=== PATIENT | female | born 1995 | race African-American/Black ===

== ENCOUNTER 2022-09-04 13:10 | Emergency (ER) | payer MEDICAID, SELFPAY ==
[2022-09-04] VITALS (19 sets, daily range): BP systolic 88–140; BP diastolic 56–86; PULSE 84–122; RESP 18–20; TEMP 36.2–36.6; O2SAT 91–99; BMI 32.1
--- NOTE | 2022-09-04 13:29 | ED.GENADULT ---
HPI - General Adult General Time Seen by Provider: 13:29 Date Seen: 09/04/22 Chief complaint: Shortness of Breath/Dyspnea Stated complaint: Asthma acting up Time Seen by Provider: 09/04/22 13:11 Source: patient Mode of arrival: ambulatory Limitations: no limitations History of Present Illness HPI narrative: Patient is a 27-year-old female who has a longstanding history of asthma. She reports that whenever the weather turns to warmer from the winter she has flares. She knows she is allergic to molds and other potential environmental allergens. She has had a slight cough but has not had fever chills. She went to urgent care today and received an injection of medication she thinks was maybe a steroid. The patient reports no improvement today and presents to ER. She reports that she has no chest pain no limb swelling. She is on albuterol fluconazole salmeterol inhaler and montelukast. The patient has had no productive cough she does have a dry asthma type cough however she has not had recent infection. Related Data Home Medications Medication Instructions Recorded Confirmed albuterol sulfate 2.5 mg/3 mL 2.5 mg inhalation Q4H PRN 09/04/22 09/04/22 (0.083 %) solution for nebulization albuterol sulfate 90 mcg/actuation 2 inh inhalation Q4H PRN 09/04/22 09/04/22 aerosol inhaler (Ventolin HFA) fluticasone 250 mcg-salmeterol 50 1 inh inhalation Q12H 09/04/22 09/04/22 mcg/dose blistr powdr for inhalation (Advair Diskus) montelukast 10 mg tablet 10 mg PO DAILY 09/04/22 09/04/22 Previous Rx's Medication Instructions Recorded prednisone 20 mg tablet 20 mg PO BID 3 days #6 tabs 09/04/22 Allergies Allergy/AdvReac Type Severity Reaction Status Date / Time No Known Drug Allergies Allergy Verified 09/04/22 13:21 Review of Systems Status of ROS: Reports: 6 or more systems reviewed and unremarkable except as noted in History and below PFSH PFS Social History Smoking Status: Former smoker What tobacco products do you use: cigarettes Do you use any of these nicotine containing products: None Second hand tobacco smoke exposure: No How often do you have a drink containing alcohol: 2-4 times a month How many standard drinks containing alcohol do you have on a typical day: 1 or 2 How often do you have six or more drinks on one occasion: Never AUDIT-C Alcohol total score: 2 Non-prescribed substance use: denies use Exam Narrative: Exam Narrative: Objective: Patient's vital signs look largely unremarkable she is afebrile, O2 sat is 96% on room air In general she is alert talks in even unlabored sentences She does have occasional cough noted HEENT is unremarkable neck is supple chest shows basilar wheezes that clear with deep breathing Heart rhythm regular without murmur Extremities good perfusion Const: Vital Signs, click to edit/add: Vital Signs - 24 hr 09/04/22 13:16 09/04/22 14:16 09/04/22 13:26 Temperature 97.1 F L 97.8 F Pulse Rate 122 H Pulse Rate [Pulse Oximeter] 105 H 101 H Respiratory Rate 20 18 Blood Pressure Blood Pressure [Ri ght Upper Arm] 117/86 112/68 Pulse Oximetry 96 95 95 Oxygen Delivery Me thod Room Air Room Air 09/04/22 13:30 09/04/22 14:00 09/04/22 14:04 Temperature Pulse Rate 122 H 111 H 107 H Pulse Rate [Pulse Oximeter] Respiratory Rate Blood Pressure 95/72 Blood Pressure [Ri ght Upper Arm] Pulse Oximetry 91 95 94 Oxygen Delivery Me thod 09/04/22 14:07 09/04/22 14:12 09/04/22 14:13 Temperature Pulse Rate 106 H 97 109 H Pulse Rate [Pulse Oximeter] Respiratory Rate Blood Pressure 93/56 L 95/57 L 112/68 Blood Pressure [Ri ght Upper Arm] Pulse Oximetry 99 98 97 Oxygen Delivery Me thod 09/04/22 14:17 09/04/22 14:22 09/04/22 14:24 Temperature Pulse Rate 99 116 H 115 H Pulse Rate [Pulse Oximeter] Respiratory Rate Blood Pressure 94/71 88/69 L 90/80 Blood Pressure [Ri ght Upper Arm] Pulse Oximetry 95 97 94 Oxygen Delivery Me thod Course Vital Signs Vital signs: Initial Vital Signs Temperature 97.1 F L 09/04/22 13:16 Temperature Source Temporal Artery Scan 09/04/22 13:16 Pulse Rate 105 H 09/04/22 13:16 Respiratory Rate 20 02/08/23 13:16 Blood Pressure 117/86 09/04/22 13:16 Blood Pressure Mean 96 09/04/22 13:16 Blood Pressure Position Sitting 09/04/22 13:16 Pulse Oximetry 96 09/04/22 13:16 Oxygen Delivery Method 09/04/22 13:16 Vital Signs Temperature 97.1 F L 09/04/22 13:16 Pulse Rate 105 H 09/04/22 13:16 Respiratory Rate 20 09/04/22 13:16 Blood Pressure 117/86 09/04/22 13:16 Pulse Oximetry 96 09/04/22 13:16 Oxygen Delivery Method 09/04/22 13:16 Temperature 97.8 F 09/04/22 14:16 Pulse Rate 115 H 09/04/22 14:24 Respiratory Rate 18 09/04/22 14:16 Blood Pressure 90/80 09/04/22 14:24 Pulse Oximetry 94 09/04/22 14:24 Oxygen Delivery Method 09/04/22 14:16 Medical Decision Making [facility] Narrative Medical decision making narrative: Patient is a 27-year-old female with longstanding asthma who is on treatment. Who has an asthmatic flare which she typically has from weather change. Will give her a prednisone 50 mg orally she reports that always worked for her in the past. Will give her a DuoNeb. Will check a COVID/influenza/RSV test. Likely might benefit from some oral steroid for the next couple of days. Careful monitoring, return if worsening or changes. She has had experience that typically she gets better with the oral prednisone. Addendum: The patient's O2 sat continues to be stable. She feels a little better after the DuoNeb, she would like to try 1 more neb I will give her albuterol neb. Will see how she does with that. Her nasal swab is not back yet. She lives in [place]. Feels she can get home adequately. She has confidence that the prednisone will help her given it has helped her many times in the past. Will call in some additional prednisone for her Lab Data Labs: Lab Results 09/04/22 Range/Units 13:35 SARS-CoV-2 (PCR) Negative SARS-CoV-2 (Negative) Influenza Type A (PCR) Negative PCR FLU A (Negative) Influenza Type B (PCR) Negative PCR FLU B (Negative) RSV (PCR) Negative PCR RSV (Negative) Discharge Plan Discharge Clinical Impression: Asthma with acute exacerbation Patient Disposition: Home, Self-Care Condition: Improved Instructions: Asthma (ED) Additional Instructions: Rest, fluids, continue home medications, would do prednisone 20 mg b.i.d. x3 days, return to primary care in 48 hours, certainly return to the ED if problems or concerns or worsening she was comfortable this plan. Activity Level: Light activity Discharge Diet: Regular Prescriptions: New prednisone 20 mg tablet 20 mg PO BID 3 Days Qty: 6 0RF No Action montelukast 10 mg tablet 10 mg PO DAILY Label Comments: TAKE ONE TABLET BY MOUTH AT BEDTIME fluticasone propion-salmeterol [Advair Diskus] 250-50 mcg/dose blister with device 1 inh INHALATION Q12H Label Comments: INHALE ONE PUFF BY MOUTH TWICE DAILY albuterol sulfate [Ventolin HFA] 90 mcg/actuation HFA aerosol inhaler 2 inh INHALATION Q4H PRN Label Comments: INHALE 2 PUFFS BY MOUTH EVERY 4 HOURS NEEDED albuterol sulfate 2.5 mg /3 mL (0.083 %) solution for nebulization 2.5 mg inhalation Q4H PRN Label Comments: inhale the contents of 1 vial via nebulizer every 4 hours as needed Follow Up/Referrals: Provider,Not a Local [Primary Care Provider] - Stand Alone Forms: [employer] / [employer] Info Instructions
[2022-09-04] MEDS: IPRAT-ALBUT 0.5-2.5 MG/3 ML NEB 1 NEB IH (13:36)
[2022-09-04] MEDS: predniSONE 10 MG TABLET 50 MG PO (13:36)
[2022-09-04] MEDS: ALBUTEROL SULFATE 2.5 MG/3 ML VIAL.NEB NEB (14:03)
[2022-09-04 14:24] LABS: PCR FLU A Negative PCR FLU A (Negative); PCR FLU B Negative PCR FLU B (Negative); PCR RSV Negative PCR RSV (Negative)
[2022-09-04 14:25] LABS: SARS PCR* Negative SARS-CoV-2 (Negative)
--- NOTE | 2022-09-04 14:26 | PC.NURSE ---
pt states still feeling short of breath with exertion, respirations at 16-20 while sitting up, inp/exp wheezing heard, room air sats 95%. Pt states she will get up and it will start all over again. Pt able to complete full sentences.
== END 2022-09-04 14:42 | disposition home or self-care (01) ==
PROVIDERS: Emergency Provider Family Medicine
DX: J45.901 Unspecified asthma with (acute) exacerbation (principal)
CPT/HCPCS: 87502; 87634; 87635; 94640; 99283; J7512

== ENCOUNTER 2022-09-04 16:21 | Outpatient (CLI) | payer MEDICAID, SELFPAY | END 2022-09-04 16:22 | disposition home or self-care (01) | LOC: AMB 09-05 09:27 | PROVIDERS: Visit Provider Family Medicine | DX: R06.09 Other forms of dyspnea (principal) | CPT/HCPCS: A0425; A0427 ==

== ENCOUNTER 2022-09-04 16:51 | Emergency (ER) | payer MEDICAID, SELFPAY ==
[2022-09-04] VITALS (109 sets, daily range): BP systolic 53–157; BP diastolic 31–113; PULSE 105–148; RESP 29; TEMP 36.2; O2SAT 88–100; BMI 32.1
[2022-09-04] MEDS: EPINEPHrine 0.3 MG PEN IM ×2 (16:53→19:32)
--- NOTE | 2022-09-04 16:55 | CRLHL7_ITS ---
For Patients: As a result of the Cures Act, medical imaging exams and procedure reports are released immediately into your electronic medical record. You may view this report before your referring provider. If you have questions, please contact your health care provider. INDICATION: DIFFICULTY BREATHING, ASTHMATIC EPISODE TECHNIQUE: Chest 1 view. COMPARISON: None. FINDINGS: Cardiovascular and mediastinum: Heart size and vasculature are normal in caliber and appearance. Mediastinum is within normal limits. Lungs and pleural space: Lungs are clear. No sign of infiltrate or mass. No sign of pleural effusion. No pneumothorax. Bones and soft tissues: No significant findings. IMPRESSION: Unremarkable chest. Dictated by: Cosme Kapoor MD @ 09/04/2022 17:20:33 (Electronically Signed)
[2022-09-04] MEDS: METHYLPREDNISOLONE SOD SUCC 62.5 MG/ML (125) 125 MG IVP (16:56)
[2022-09-04] MEDS: 0.9 % SODIUM CHLORIDE 1000 ml 1,000 ML 6000 ML IV ×2 (16:57→17:40)
[2022-09-04] MEDS: LORazepam 2 MG/ML inj 1 MG IVP (17:02)
--- NOTE | 2022-09-04 17:04 | ED.GENADULT ---
HPI - General Adult General Time Seen by Provider: 17:04 Date Seen: 09/04/22 Chief complaint: Shortness of Breath/Dyspnea Stated complaint: Asthma Time Seen by Provider: 09/04/22 16:55 Source: patient Mode of arrival: EMS Limitations: physical limitation History of Present Illness HPI narrative: Patient is a 27-year-old female who was in earlier for asthma. She had gotten an injection at the urgent care and then got prednisone orally here as well as DuoNeb and albuterol neb. She felt better her O2 sats were in the mid 90% range without on room air and she wished to try and go home. She got home to [facility] and subsequently woke up from a nap and felt more short of breath ambulance was called and they brought her here. She was on attempted BiPAP she got Ativan 0.3 mg of IM epi has a [address]. She has her color is much better than when she was picked up. She has got an additional Ativan 1 mg now by the ER staff she went to stay 1 she was placed on BiPAP with an elevated FiO2 of 70 it has been reduced to 60 as she has 100% O2 sat. She feels much better her color is improved per the paramedics. She has a history of asthma since she has been a small child, and gets worse when she has change in weather like today when it is a little warmer. She has multiple allergies to mold and other issues. She has responded well to prednisone. She has not been intubated in the past Related Data Home Medications Medication Instructions Recorded Confirmed albuterol sulfate 2.5 mg/3 mL 2.5 mg inhalation Q4H PRN 09/04/22 09/04/22 (0.083 %) solution for nebulization albuterol sulfate 90 mcg/actuation 2 inh inhalation Q4H PRN 09/04/22 09/04/22 aerosol inhaler (Ventolin HFA) fluticasone 250 mcg-salmeterol 50 1 inh inhalation Q12H 09/04/22 09/04/22 mcg/dose blistr powdr for inhalation (Advair Diskus) montelukast 10 mg tablet 10 mg PO DAILY 09/04/22 09/04/22 Previous Rx's Medication Instructions Recorded prednisone 20 mg tablet 20 mg PO BID 3 days #6 tabs 02/08/23 Allergies Allergy/AdvReac Type Severity Reaction Status Date / Time No Known Drug Allergies Allergy Verified 09/04/22 13:21 Review of Systems Status of ROS: Reports: 6 or more systems reviewed and unremarkable except as noted in History and below PFSH PFS Social History Smoking Status: Former smoker What tobacco products do you use: cigarettes Do you use any of these nicotine containing products: None Second hand tobacco smoke exposure: No How often do you have a drink containing alcohol: 2-4 times a month How many standard drinks containing alcohol do you have on a typical day: 1 or 2 How often do you have six or more drinks on one occasion: Never AUDIT-C Alcohol total score: 2 Non-prescribed substance use: denies use Exam Narrative: Exam Narrative: Objective patient is alert oriented little bit distressed, O2 sat is low 90s She is slightly pale mouth clear lungs she has got wheezing in upper lower lung rowe to auscultation Heart is rhythm regular Extremities good perfusion Const: Vital Signs, click to edit/add: Vital Signs - 24 hr 09/04/22 17:03 09/04/22 17:04 09/04/22 17:05 Temperature Pulse Rate 118 H 132 H 140 H Pulse Rate [Pulse Oximeter] Respiratory Rate Blood Pressure 149/94 H Blood Pressure [Le ft Upper Arm] Pulse Oximetry 88 100 100 Oxygen Delivery Me thod 09/04/22 17:09 09/04/22 17:12 09/04/22 17:13 Temperature Pulse Rate 138 H 135 H 129 H Pulse Rate [Pulse Oximeter] Respiratory Rate Blood Pressure 127/98 H 116/98 H Blood Pressure [Le ft Upper Arm] Pulse Oximetry 99 100 100 Oxygen Delivery Me thod 09/04/22 17:15 09/04/22 17:17 09/04/22 17:20 Temperature Pulse Rate 127 H 124 H 130 H Pulse Rate [Pulse Oximeter] Respiratory Rate Blood Pressure 125/85 Blood Pressure [Le ft Upper Arm] Pulse Oximetry 100 100 100 Oxygen Delivery Me thod 09/04/22 17:25 09/04/22 17:26 09/04/22 17:28 Temperature Pulse Rate 146 H 143 H 137 H Pulse Rate [Pulse Oximeter] Respiratory Rate Blood Pressure 125/55 L Blood Pressure [Le ft Upper Arm] Pulse Oximetry 100 100 100 Oxygen Delivery Me thod 09/04/22 17:30 09/04/22 17:31 09/04/22 17:35 Temperature Pulse Rate 131 H 128 H 129 H Pulse Rate [Pulse Oximeter] Respiratory Rate Blood Pressure 128/70 Blood Pressure [Le ft Upper Arm] Pulse Oximetry 100 100 100 Oxygen Delivery Me thod 09/04/22 17:37 09/04/22 17:38 09/04/22 17:40 Temperature Pulse Rate 127 H 126 H 119 H Pulse Rate [Pulse Oximeter] Respiratory Rate Blood Pressure 135/67 Blood Pressure [Le ft Upper Arm] Pulse Oximetry 100 100 100 Oxygen Delivery Me thod 09/04/22 17:42 09/04/22 17:45 09/04/22 17:46 Temperature Pulse Rate 119 H 121 H 122 H Pulse Rate [Pulse Oximeter] Respiratory Rate Blood Pressure 98/65 108/61 Blood Pressure [Le ft Upper Arm] Pulse Oximetry 100 100 100 Oxygen Delivery Me thod 09/04/22 17:50 09/04/22 17:52 09/04/22 17:55 Temperature Pulse Rate 120 H 120 H 128 H Pulse Rate [Pulse Oximeter] Respiratory Rate Blood Pressure 101/56 L Blood Pressure [Le ft Upper Arm] Pulse Oximetry 100 100 100 Oxygen Delivery Me thod 09/04/22 17:57 09/04/22 18:00 09/04/22 18:01 Temperature Pulse Rate 148 H 132 H 125 H Pulse Rate [Pulse Oximeter] Respiratory Rate Blood Pressure 84/43 L 94/61 Blood Pressure [Le ft Upper Arm] Pulse Oximetry 95 98 100 Oxygen Delivery Me thod 09/04/22 18:05 09/04/22 18:07 09/04/22 18:10 Temperature Pulse Rate 122 H 131 H 132 H Pulse Rate [Pulse Oximeter] Respiratory Rate Blood Pressure 117/52 L Blood Pressure [Le ft Upper Arm] Pulse Oximetry 100 99 98 Oxygen Delivery Me thod 09/04/22 18:12 09/04/22 16:52 09/04/22 17:00 Temperature 97.2 F L Pulse Rate 132 H Pulse Rate [Pulse Oximeter] 125 H Respiratory Rate 29 H Blood Pressure 108/57 L Blood Pressure [Le ft Upper Arm] 157/113 H Pulse Oximetry 99 100 100 Oxygen Delivery Me thod BiPAP 09/04/22 18:13 09/04/22 18:15 02/08/23 18:16 Temperature Pulse Rate 126 H 122 H 126 H Pulse Rate [Pulse Oximeter] Respiratory Rate Blood Pressure 76/56 L Blood Pressure [Le ft Upper Arm] Pulse Oximetry 100 100 100 Oxygen Delivery De thod 09/04/22 18:20 09/04/22 18:22 09/04/22 18:25 Temperature Pulse Rate 126 H 123 H 121 H Pulse Rate [Pulse Oximeter] Respiratory Rate Blood Pressure 120/62 Blood Pressure [Le ft Upper Arm] Pulse Oximetry 99 97 [facility] 18:30 09/04/22 18:35 09/04/22 18:40 Temperature Pulse Rate 124 H 122 H 121 H Pulse Rate [Pulse Oximeter] Respiratory Rate Blood Pressure 75/55 L Blood Pressure [Le ft Upper Arm] Pulse Oximetry 100 100 [facility] 09[facility]/22 18:41 09/04/22 18:44 09/04/22 18:45 Temperature Pulse Rate 116 H 122 H 121 H Pulse Rate [Pulse Oximeter] Respiratory Rate Blood Pressure 102/56 L Blood Pressure [Le ft Upper Arm] Pulse Oximetry 100 99 98 [facility] 09[facility]/22 18:47 09/04/22 18:50 09/04/22 18:55 Temperature Pulse Rate 117 H 120 H 120 H Pulse Rate [Pulse Oximeter] Respiratory Rate Blood Pressure 101/51 L Blood Pressure [Le ft Upper Arm] Pulse Oximetry 100 100 100 Oxygen Delivery De thod 09/04/22 18:59 09/04/22 19:00 09/04/22 19:04 Temperature Pulse Rate 118 H 117 H 117 H Pulse Rate [Pulse Oximeter] Respiratory Rate Blood Pressure Blood Pressure [Le ft Upper Arm] Pulse Oximetry 100 100 [facility]22 19:05 09/04/22 19:07 09/04/22 19:10 Temperature Pulse Rate 113 H 120 H 120 H Pulse Rate [Pulse Oximeter] Respiratory Rate Blood Pressure 111/47 L Blood Pressure [Le ft Upper Arm] Pulse Oximetry 100 100 [facility] 09[facility]/22 19:12 09/04/22 19:15 09/04/22 19:17 Temperature Pulse Rate 118 H 117 H 116 H Pulse Rate [Pulse Oximeter] Respiratory Rate Blood Pressure 85/62 L 87/61 L Blood Pressure [Le ft Upper Arm] Pulse Oximetry 100 100 100 Oxygen Delivery Me thod 09/04/22 19:20 09/04/22 19:22 09/04/22 19:25 Temperature Pulse Rate 121 H 116 H 113 H Pulse Rate [Pulse Oximeter] Respiratory Rate Blood Pressure 114/81 Blood Pressure [Le ft Upper Arm] Pulse Oximetry 100 100 100 Oxygen Delivery Me thod 09/04/22 19:27 09/04/22 19:30 09/04/22 19:32 Temperature Pulse Rate 121 H 108 H 111 H Pulse Rate [Pulse Oximeter] Respiratory Rate Blood Pressure 124/68 125/75 Blood Pressure [Le ft Upper Arm] Pulse Oximetry 100 100 99 Oxygen Delivery De thod 09/04/22 19:35 09/04/22 19:40 09/04/22 19:41 Temperature Pulse Rate 122 H 130 H 135 H Pulse Rate [Pulse Oximeter] Respiratory Rate Blood Pressure 123/58 L Blood Pressure [Le ft Upper Arm] Pulse Oximetry 97 94 94 Oxygen Delivery De thod 09/04/22 19:45 09/04/22 19:47 09/04/22 19:50 Temperature Pulse Rate 137 H 123 H 120 H Pulse Rate [Pulse Oximeter] Respiratory Rate Blood Pressure 96/62 Blood Pressure [Le ft Upper Arm] Pulse Oximetry 93 95 99 Oxygen Delivery De thod 09/04/22 19:51 09/04/22 19:55 09/04/22 19:56 Temperature Pulse Rate 115 H 113 H 115 H Pulse Rate [Pulse Oximeter] Respiratory Rate Blood Pressure 112/81 108/72 Blood Pressure [Le ft Upper Arm] Pulse Oximetry 99 99 100 Oxygen Delivery De thod 09/04/22 19:57 09/04/22 20:00 09/04/22 20:02 Temperature Pulse Rate 117 H 108 H 114 H Pulse Rate [Pulse Oximeter] Respiratory Rate Blood Pressure 108/52 L 139/80 Blood Pressure [Le ft Upper Arm] Pulse Oximetry 99 100 99 Oxygen Delivery De thod 09/04/22 20:05 09/04/22 20:07 09/04/22 20:10 Temperature Pulse Rate 119 H 105 H 112 H Pulse Rate [Pulse Oximeter] Respiratory Rate Blood Pressure 127/78 Blood Pressure [Le ft Upper Arm] Pulse Oximetry 99 100 100 Oxygen Delivery De thod 09/04/22 20:11 02/08/23 20:15 09/04/22 20:18 Temperature Pulse Rate 115 H 131 H 124 H Pulse Rate [Pulse Oximeter] Respiratory Rate Blood Pressure 99/63 53/31 L Blood Pressure [Le ft Upper Arm] Pulse Oximetry 100 94 96 Oxygen Delivery Me thod 09/04/22 20:20 09/04/22 20:21 09/04/22 20:25 Temperature Pulse Rate 127 H 123 H 119 H Pulse Rate [Pulse Oximeter] Respiratory Rate Blood Pressure 128/104 H Blood Pressure [Le ft Upper Arm] Pulse Oximetry 95 97 99 Oxygen Delivery Me thod 09/04/22 20:28 09/04/22 20:30 Temperature Pulse Rate 126 H 122 H Pulse Rate [Pulse Oximeter] Respiratory Rate Blood Pressure Blood Pressure [Le ft Upper Arm] Pulse Oximetry 99 98 Oxygen Delivery Me thod Course Vital Signs Vital signs: Initial Vital Signs Temperature 97.2 F L 09/04/22 16:52 Temperature Source Temporal Artery Scan 09/04/22 16:52 Pulse Rate 125 H 09/04/22 16:52 Respiratory Rate 29 H 09/04/22 16:52 Blood Pressure 157/113 H 09/04/22 16:52 Blood Pressure Mean 127 09/04/22 16:52 Blood Pressure Position Sitting 09/04/22 16:52 Pulse Oximetry 100 09/04/22 16:52 Oxygen Delivery Method 09/04/22 16:52 Vital Signs Temperature 97.2 F L 09/04/22 16:52 Pulse Rate 125 H 09/04/22 16:52 Respiratory Rate 29 H 09/04/22 16:52 Blood Pressure 157/113 H 09/04/22 16:52 Pulse Oximetry 100 09/04/22 16:52 Oxygen Delivery Method 09/04/22 16:52 Temperature 97.2 F L 09/04/22 16:52 Pulse Rate 122 H 09/04/22 20:30 Respiratory Rate 29 H 09/04/22 16:52 Blood Pressure 128/104 H 09/04/22 20:20 Pulse Oximetry 98 09/04/22 20:30 Oxygen Delivery Method 09/04/22 16:52 Medical Decision Making MDM Narrative Medical decision making narrative: Patient is a 27-year-old female with a history of asthma. She has tested negative for all the viral swab studies, she got IV steroids now and Ativan as well as 0.3 epi x2 1 in the ambulance and 1 here in the ER. The patient will get a chest x-ray lab studies a L of IV fluid. She is on BiPAP now RT is been consulted they are giving a settings. Her O2 sat is 100%. She is feeling much better. Her color is much better per the paramedics. I suspect we can watch her in the ED for a period of time and see how she does before consideration transfer other plan. If she continues to improve we can stop and wean off the BiPAP and I will ask Dr. Spann to consult if we consider keeping her here. Addendum: The patient went from a trial of BiPAP where she was by our RTs assessment starting auto PEEP. We took that off and gave her non-rebreather mask which she seems to be doing much better on. Her heart rate has come down her O2 sat remains 100% she is talking in more full sentences she is much calmer her color looks good. Her pH shows a slightly acidotic venous gases 7.2 not marked CO2 retention. Patient's chest x-ray looks largely unremarkable. EKG shows sinus tachycardia rate [address] changes mostly artifact. The patient was given IV 2 g of magnesium, subcu terbutaline 0.25 mg 1 L of IV saline. And she is improving nicely, talking more full sentences as mention. Her white count is elevated 18,000 her chest x-ray looks unremarkable, the patient did get a shot of probable steroid this morning. Her viral studies were negative earlier today. If she continues to improve I think she can stay in the hospital for continued observation oxygen. Will observe her in the ED for lengthy period of time. Addendum: The patient was doing better for a period time but now is got a little bit lower blood pressure in the 100 range systolic, she feels a little bit wheezy again. She is given another albuterol neb. I am going to start at this point calling around for various hospital systems as bed placement been very difficult to see if anyone can take her for observation in the ICU. I feel that at some point she certainly given this has not turned around could have trouble and may need intubation and mechanical ventilation or BiPAP for period of time. The patient has started to have some wheezing again. I discussed with Dr. Darwin Diane at [facility] senior software analyst who recommended repeating the venous blood gas. If she remains acidotic they would accept her in transfer. The patient has had some additional wheezing but we will see if her blood gas changes and then disposition pending. We should know this within short order and then she would be on a wait list for [facility]. Addendum: 7:19 p.m. the patient I discussed with the senior software analyst at [place] he has accepted, but they have a 3-[address] Granados in [facility] has accepted as senior software analyst. At this point given we do not have ventilatory capacity I do not think intubation be appropriate, her pH was about the same. Will continue to provide treatment for her asthma. Hopefully or steroids will kick in shortly. Will transfer by ground ambulance when available. Of note is we tried to contact all other [facility] is a known was accepting this was the soonest we could get a hospital bed. Family was informed. This is a critical situation and I think there is really no good choices here other than supportive care and transfer to more intensive care when available. This constitutes a great risk and it certainly not my preference is a physician I would rather her transfer promptly but will have to make arrangements as available. Patient is complaining of a draining cyst in her vaginal area, with nurses present inspection showed a small cyst but it did not appear to be draining. She does have a moderately elevated elevated white count common will give her Rocephin and Zithromax IV. Await [facility] acceptance for transfer. Patient is hemodynamically stable at this point she was acidotic on 2 venous blood gases however but she does seem to be stable at this point. I anticipate summer steroid medicines kicking at this time Lab Data Labs: Lab Results 09/04/22 09/04/22 09/04/22 Range/Units 17:02 17:02 17:02 WBC 18.57 H (4.50-11.00) K/uL RBC 5.11 (4.00-5.20) m/uL Hgb 14.7 (12.0-16.0) gm/dL Hct 43.8 (33.0-51.0) % MCV 86 (80-100) fL MCH 29 (26-34) pg MCHC 34 (32-36) gm/dL RDW Coeff of Ramesh 12.9 (11.5-15.5) % Plt Count 364 (140-440) K/uL Neut % (Auto) 95.6 H (42.0-72.0) % Lymph % (Auto) 2.8 L (20-44) % [place] % (Auto) 0.4 (0.0-11.0) % Eos % (Auto) 0.0 (0.0-7.0) % Baso % (Auto) 0.0 (0.0-3.0) % Neut # (Auto) 17.80 H (1.7-7.0) K/uL Lymph # (Auto) 0.50 L (0.90-2.90) K/uL [place] # (Auto) 0.10 (0.00-0.90) K/UL Eos # (Auto) 0.00 (0.00-0.50) K/uL Baso # (Auto) 0.00 (0.00-0.30) K/uL VBG pH (7.32-7.43) VBG pCO2 (40-50) mmHG VBG pO2 (25-47) mmHG VBG HCO3 (21-28) mmol/L Sodium 144 (135-149) mmol/L Potassium 3.6 (3.6-5.1) mmol/L Chloride 109 (96-114) mmol/L Carbon Dioxide 23 (20-32) mmol/L BUN 11 (5-24) mg/dL Creatinine 0.5 (0.5-1.5) mg/dL Estimated GFR 133 ml/min Glucose 173 H (60-115) mg/dL Calcium 9.2 (8.4-10.6) mg/dL C-Reactive Protein 0.7 (0.5-1.0) mg/dL HCG, Qual Negative (Negative) 09/04/22 09/04/22 09/04/22 Range/Units 17:20 18:30 19:23 WBC (4.50-11.00) K/uL RBC (4.00-5.20) m/uL Hgb (12.0-16.0) gm/dL Hct (33.0-51.0) % MCV (80-100) fL MCH (26-34) pg MCHC (32-36) gm/dL RDW Coeff of Ramesh (11.5-15.5) % Plt Count (140-440) K/uL Neut % (Auto) (42.0-72.0) % Lymph % (Auto) (20-44) % [place] % (Auto) (0.0-11.0) % Eos % (Auto) (0.0-7.0) % Baso % (Auto) (0.0-3.0) % Neut # (Auto) (1.7-7.0) K/uL Lymph # (Auto) (0.90-2.90) K/uL [place] # (Auto) (0.00-0.90) K/UL Eos # (Auto) (0.00-0.50) K/uL Baso # (Auto) (0.00-0.30) K/uL VBG pH 7.231 L* 7.212 L* (7.32-7.43) VBG pCO2 58 H 35 L (40-50) mmHG VBG pO2 45.6 76.7 H (25-47) mmHG VBG HCO3 24 14 L (21-28) mmol/L Sodium (135-149) mmol/L Potassium 4.1 (3.6-5.1) mmol/L Chloride (96-114) mmol/L Carbon Dioxide (20-32) mmol/L BUN (5-24) mg/dL Creatinine (0.5-1.5) mg/dL Estimated GFR ml/min Glucose (60-115) mg/dL Calcium (8.4-10.6) mg/dL C-Reactive Protein (0.5-1.0) mg/dL HCG, Qual (Negative) Discharge Plan Discharge Clinical Impression: Asthma with acute exacerbation, Asthma Patient Disposition: Xfer [facility] Discharge Location: [facility] Condition: Unchanged Additional Instructions: Transfer to in intensive care unit at [facility] Prescriptions: No Action montelukast 10 mg tablet 10 mg PO DAILY Label Comments: TAKE ONE TABLET BY MOUTH AT BEDTIME fluticasone propion-salmeterol [Advair Diskus] 250-50 mcg/dose blister with device 1 inh INHALATION Q12H Label Comments: INHALE ONE PUFF BY MOUTH TWICE DAILY albuterol sulfate [Ventolin HFA] 90 mcg/actuation HFA aerosol inhaler 2 inh INHALATION Q4H PRN Label Comments: INHALE 2 PUFFS BY MOUTH EVERY 4 HOURS NEEDED albuterol sulfate 2.5 mg /3 mL (0.083 %) solution for nebulization 2.5 mg inhalation Q4H PRN Label Comments: inhale the contents of 1 vial via nebulizer every 4 hours as needed prednisone 20 mg tablet 20 mg PO BID 3 Days Qty: 6 0RF Stand Alone Forms: [employer] Info Instructions
[2022-09-04] MEDS: ALBUTEROL INHALER 2 PUFF IH ×2 (17:08→20:20)
[2022-09-04 17:17] LABS: Hematocrit 43.8 % (33.0-51.0); Hemoglobin* 14.7 gm/dL (12.0-16.0); Immature Granulocytes Pct Auto 1.2 %; Lymphocytes Percent Auto 2.8 % (20-44); Mean Corpuscular HGB Conc 34 gm/dL (32-36); Mean Corpuscular Hemoglobin 29 pg (26-34); Mean Corpuscular Volume 86 fL (80-100); Monocytes Percent Auto 0.4 % (0.0-11.0); Neutrophils Percent Auto 95.6 % (42.0-72.0); Platelet Count* 364 K/uL (140-440); RDW Coefficient of Variation % 12.9 % (11.5-15.5); Red Blood Count 5.11 m/uL (4.00-5.20); White Blood Count* 18.57 K/uL (4.50-11.00)
[2022-09-04 17:22] LABS: Slide Review Reflex No
[2022-09-04 17:26] LABS: HCO3 VBG 24 mmol/L (21-28); PCO2 VBG 58 mmHG (40-50); PO2 VBG 45.6 mmHG (25-47)
[2022-09-04] MEDS: MAGNESIUM SULFATE 2 GM/50 ML PIGGYBACK IVPB (17:26)
[2022-09-04 17:29] LABS: pH VBG 7.231 (7.32-7.43)
[2022-09-04] MEDS: TERBUTALINE 1 MG/ML INJ 0.25 MG SUBCUT (17:35)
[2022-09-04 17:39] LABS: Chloride* 109 mmol/L (96-114); HCG Qualitative Serum* Negative (Negative); Potassium* 3.6 mmol/L (3.6-5.1); Sodium* 144 mmol/L (135-149)
[2022-09-04 17:42] LABS: Blood Urea Nitrogen* 11 mg/dL (5-24); Carbon Dioxide* 23 mmol/L (20-32); Creatinine* 0.5 mg/dL (0.5-1.5); Estimated Glomerular Filt Rate 133 ml/min
[2022-09-04 17:43] LABS: Calcium* 9.2 mg/dL (8.4-10.6); Glucose* 173 mg/dL (60-115)
[2022-09-04 17:45] LABS: C Reactive Protein* 0.7 mg/dL (0.5-1.0)
[2022-09-04] MEDS: ONDANSETRON 2 MG/ML inj 4 MG IVP (18:00)
[2022-09-04] MEDS: ALBUTEROL SULFATE 2.5 MG/3 ML VIAL.NEB NEB ×2 (18:05→19:32)
--- NOTE | 2022-09-04 18:05 | ED.NURSE ---
Pt vomited after having sip of water. zofran given. Also having an increase in wheezing, Alb neb given
[2022-09-04 18:42] LABS: HCO3 VBG 14 mmol/L (21-28); PCO2 VBG 35 mmHG (40-50); PO2 VBG 76.7 mmHG (25-47)
[2022-09-04 18:53] LABS: pH VBG 7.212 (7.32-7.43)
--- NOTE | 2022-09-04 19:32 | ED.NURSE ---
Pt felt like she is wheezing more. Dr Flannery updated. Epipen and neb given
[2022-09-04 20:06] LABS: Potassium* 4.1 mmol/L (3.6-5.1)
--- NOTE | 2022-09-04 20:30 | PC.NURSE ---
pts mother Aram, going home to take care of pts [age] year old Marcelino. Her phone number is # .
--- NOTE | 2022-09-04 20:34 | ED.NURSE ---
Report to JACEY Tapia at [facility]
[2022-09-04] MEDS: 0.9 % SODIUM CHLORIDE 1000 ml 1,000 ML 75 ML IV (20:56)
[2022-09-04] MEDS: cefTRIAXone 1 GM in 0.9 % SODIUM CHLORIDE Mini-bag 100 ML IVPB (20:58)
[2022-09-04] MEDS: AZITHROMYCIN 100 MG/ML inj 500 MG IVPB (21:04)
[2022-09-04 21:19] LABS: Bacteria Urine Few; Squamous Epithelial Cell Urine Few (None-Few)
--- NOTE | 2022-09-04 21:31 | PC.NURSE ---
pt continues to have increase dyspnea using accessory muscles. Talking with short quick sentences. Duoneb started. noted audible wheezing. tachy 124 and sat 92%. Per MD Dr Huddleston [t may now be transferred emergently.
--- NOTE | 2022-09-04 21:54 | PC.NURSE ---
report given to transfering acls crew, report had been called to [facility].
--- NOTE | 2022-09-04 21:57 | PC.NURSE ---
updated report and patient status called to [place] receiving RNRegina. Pt has maintenance fluids infusing along with zithromax and rocephin piggyback. Radiology called and will be forwarding images to [place]. VSS, pt tolerating duoneb started. RR 24-28, oxygen sats 92-93%.
== END 2022-09-04 21:40 | disposition short-term general hospital (02) ==
PROVIDERS: Emergency Provider Family Medicine
DX: J45.901 Unspecified asthma with (acute) exacerbation (principal)
CPT/HCPCS: 36415; 71045; 80048; 81015; 82803; 84132; 84703; 85025; 86140; 87086; 93005; 94640; 94761; 96361; 96372; 96374; 96375; 99285; 99291; A9270; J0171; J0456; J0696; J2060; J2405; J2930; J3105; J3475; J7030

== ENCOUNTER 2022-09-04 21:33 | Outpatient (CLI) | payer MEDICAID, SELFPAY | END 2022-09-04 21:34 | disposition home or self-care (01) | LOC: AMB 09-17 12:25 | PROVIDERS: PCP Emergency Medicine; Visit Provider Family Medicine | DX: J45.909 Unspecified asthma, uncomplicated (principal); J96.90 Respiratory failure, unspecified, unspecified whether with hypoxia or hypercapnia | CPT/HCPCS: A0425; A0427 ==

== ENCOUNTER 2023-12-17 22:22 | Outpatient (REF) | payer MEDICAID, SELFPAY ==
--- OUTSIDE RECORDS SUMMARY | 2023-12-17 22:25 | XMS_ITS | Referral Summary ---
Author Organization [place] Address [facility] [place] [address] Care Team Providers Care Cash Posting Clerk Name Role Phone No Ref-Primary, Physician Primary Care Provider Allergies Active Allergy Reactions Criticality Noted Date Comments Cats Difficulty breathing Medium 05/12/2006 Dogs Difficulty breathing Low 05/12/2006 Medications Medication Sig Dispensed Refills Start Date End Date Status Vitamin D, Cholecalciferol, 400 UNITS CHEW Take 2 chew tab by mouth Active montelukast (SINGULAIR) 10 MG tabletIndications:M oderate persistent asthma with exacerbation Take 1 tablet (10 mg) by mouth At Bedtime 30 tablet 11/16/2018 Active fluticasone (FLOVENT HFA) 110 MCG/ACT inhalerIndications: Moderate persistent asthma with exacerbation Inhale 2 puffs into the lungs 2 times daily 12 g 11/16/2018 Active vitamin B6 (PYRIDOXINE) 50 MG TABS Take 100 mg by mouth daily Active Vit-Fe Fumarate-FA ( FA PO) Active predniSONE (DELTASONE) 20 MG tablet Take two tablets (= 40mg) each day for 5 (five) days 10 tablet 08/12/2023 Active albuterol (PROVENTIL) (2.5 MG/3ML) 0.083% neb solution Take 1 vial (2.5 mg) by nebulization every 6 hours as needed for shortness of breath, wheezing or cough 90 mL 08/12/2023 Active albuterol (PROAIR HFA) 108 (90 Base) MCG/ACT inhaler Inhale 2 puffs into the lungs every 4 hours as needed for shortness of breath, wheezing or cough 18 g 08/12/2023 Active Active Problems Problem Noted Date Diagnosed Date Indication for care in labor or delivery 021 Asthma exacerbation 08/31/2017 Acute hypoxemic respiratory failure 02/22/2016 Broken tooth 12/26/2014 Suicidal ideation 12/24/2014 Mild major depression 05/02/2013 Moderate persistent asthma 04/12/2013 Obesity 04/23/2006 Overview: Problem list name updated by automated process. Provider to review Insulin resistance 04/21/2005 Acquired acanthosis nigricans 04/07/2005 Resolved Problems Problem Noted Date Diagnosed Date Resolved Date Moderate persistent asthma with exacerbation 3 05/02/2013 Intermittent asthma 02/22/2011 04/12/20 13 H/O Mild Persistent Asthma 04/05/2009 0 04/12/2013 Allergic state 04/21/2005 10/02/2005 Overview: Problem list name updated by automated process. Provider to review Moderate persistent asthma 10/11/2004 0 04/05/2009 ACUTE PYELONEPHRITIS 07/22/2003 013 Mild persistent asthma 12/19/200210/11 Anemia 12/19/2002 04/23/2006 Overview: Problem list name updated by automated process. Provider to review Immunizations Name Administration Dates Next Due DTAP (<7y) 04/13/2001, 8,1997,06/08 HEPA 04/19/2013,09/13/2011 HIB (PRP-T) 07/03/1998, 8,1997,06/08 HPV 10/30/2009,06/09/2009,03/20/2009 HepB 1997,1997,1997 Influenza (IIV3) PF 04/19/2013 Influenza Vaccine >6 months,quad, PF 05/16/2021, 09/01/2017 Influenza Vaccine, 6+MO IM (QUADRIVALENT W/PRESERVATIVES) 06/07/2016 MMR 04/13/2001,07/03/1998 Meningococcal ACWY (Menactra??) 03/20/2009 OPV, trivalent, live 04/11/1998 Poliovirus, inactivated (IPV) 04/13/2001, 998,1997 TDAP (Adacel,Boostrix) 05/16/2021,02/23/2018 TDAP Vaccine (Boostrix) 03/18/2008 TRIHIBIT (DTAP/HIB, <7y) 07/03/1998 Varicella 03/18/2008,03/23/2007 Social History Tobacco Use Types Packs/Day Years Used Date Smoking Tobacco: Every Day Cigarettes Smokeless Tobacco: Never Comments:parents smoke outsi de Alcohol Use Standard Drinks/Week Comments Yes 0 (1 standard drink = 0.6 oz pur e alcohol) PHQ-2 Answer Date Recorded PHQ-2 Score 0 08/04/2018 [place] Depression Scale Answer Date Recorded [place] Depression Score 3 07/02/2021 Last EPDS Self Harm Result Not on file 07/02 Adolescent Education Answer Date Record ed Getting School Help Needed Not on file 05/11 Sex and Gender Information Value Date Recorded Sex Assigned at Not on file Gender Identity Not on file Sexual Orientation Not on file Last Filed Vital Signs Vital Sign Reading Time Taken Comments Blood Pressure 137/119 08/12/2023 1:00 PM CAR ATTENDANT Pulse 76 08/12/2023 1:00 PM CAR ATTENDANT Temperature 36.1 ??C (97 ??F) 08/12/2023 12:04 PM CAR ATTENDANT Respiratory Rate 17 08/12/2023 1:35 PM CAR ATTENDANT Oxygen Saturation 97% 08/12/2023 1:35 PM CAR ATTENDANT Inhaled Oxygen Concentration - - Weight 85.3 kg (188 lb) 02/18/2021 6:33 PM CDT Height 156.2 cm (5' 1.5) 02/18/2021 6:33 PM CDT Body Mass Index 34.95 02/18/2021 6:33 PM CDT Plan of Treatment Not on file Procedures Procedure Name Priority Date/Time Associated Diagnosis Comments HIV 1&2 ANTIBODY (EXTERNAL RESULT) Routine 12/11/2020 12:00 PM CDT NEISSERIA GONORRHOEAE PCR Routine 06/29/2018 8:40 PM CAR ATTENDANT Screen for STD (sexually transmitted disease) ASTHMA ACTION PLAN Routine 12/15/2017 2: 11 PM CDT from Last 3 Months or Most Recently Relevant to Health Maintenance Results * HIV-1 Antibody (External Result) (12/11/2020 12:00 PM CDT) HIV 1&2 Antibody (External) Negative Nonreactive EXTERNAL LAB 12/11/2020 12:0 0 PM CDT Patient Reported LAB - HIM EXTERNAL R ESULT EXTERNAL LAB External Lab * NEISSERIA GONORRHOEA PCR (06/29/2018 8:40 PM CAR ATTENDANT) Specimen Descrip Vagina 06/29/20 8:49 PM CAR ATTENDANT [facility] N Gonorrhea PCR Negative NEG^Negat mohinder 07/01/2018 3:15 PM CAR ATTENDANT [facility] Comment: Negative for N. gonorrhoeae rRNA by hoist operator mediated amplification. A negative result by hoist operator mediated amplification does not preclude the presence of N. gonorrhoeae infection because results are dependent on proper and adequate collection, absence of inhibitors, and sufficient rRNA to be detected. Specimen from vagina (specimen) 06/29/2018 8:40 PM CAR ATTENDANT 06/29/2018 8:49 PM CAR ATTENDANT Clarice Wong MD LAB - MICRO GEN ERAL ORDERABLES Performing Organization Address [facility] Co de Phone Number [facility] [address], [place] [id number] [place] [address] [place] [address] [place] [address] from Last 3 Months or Most Recently Relevant to Health Maintenance Advance Directives For more information, please contact: [phone] * Full Code (Latest Code Status on File) Date Activated Date Inactivated Comments 07/02/2021 10:50 AM 07/03/2021 1:21 PM All basic a nd advanced life-sustaining interventions are performed as appropriate Question Answer Comments Code status determined by: Discussion with patie nt/ legal decision maker * Full Code Date Activated Date Inactivated Comments 06/30/2021 1:42 AM 07/01/2021 11:56 AM All basic a nd advanced life-sustaining interventions are performed as appropriate Question Answer Comments Code status determined by: Discussion with patie nt/ legal decision maker * Full Code Date Activated Date Inactivated Comments 09/01/2017 8:21 AM 10/12/2019 9:18 AM * Full Code Date Activated Date Inactivated Comments 08/31/2017 3:46 AM 09/01/2017 8:21 AM * Full Code Date Activated Date Inactivated Comments 02/24/2016 1:47 AM 08/31/2017 3:46 AM Care Teams Cash Posting Clerk Relationship Specialty Start Date End Date No Ref-Primary, Physician PCP - General 02/18/21
--- OUTSIDE RECORDS SUMMARY | 2023-12-17 22:25 | XMS_ITS | Clinical Summary ---
Author Organization [place] Address [facility] [place] [address] Care Team Providers Care Optometric Assistant Name Role Phone No Ref-Primary, Physician Primary [...] 03/18/2008 TRIHIBIT (DTAP/HIB, <7y) 07/03/1998 Varicella 03/18/2008,03/23/2007 Family History Medical History Relation Comments Blood Disease Father Heart Disease Father murmur Psychotic Disorder Father Bipolar Diabetes Maternal Aunt Depression Maternal Grandmother and anxiety Thyroid Disease Maternal Grandmother C.A.D. Maternal Uncle Depression Mother and anxiety Genitourinary Problems Mother kidney Psychotic Disorder Paternal Grandmother bipolar Relation Status Comments Father Maternal Aunt Maternal Grandmother Maternal Uncle Mother Paternal Grandmother Social History Tobacco Use Types Packs/Day Years Used Date Smoking Tobacco: Every Day Cigarettes Smokeless Tobacco: Never Comments:parents smoke outsi de Alcohol Use Standard Drinks/Week Comments Yes 0 (1 standard drink = 0.6 oz pur e alcohol) PHQ-2 Answer Date Recorded PHQ-2 Score 0 08/04/2018 [place] Depression Scale Answer Date Recorded [place] Depression Score 3 07/02/2021 Last EPDS Self [...] Comments Blood Pressure 137/119 08/12/2023 1:00 PM SENIOR SOFTWARE ENGINEERING MANAGER Pulse 76 08/12/2023 1:00 PM SENIOR SOFTWARE ENGINEERING MANAGER Temperature 36.1 ??C (97 ??F) 08/12/2023 12:04 PM SENIOR SOFTWARE ENGINEERING MANAGER Respiratory Rate 17 08/12/2023 1:35 PM SENIOR SOFTWARE ENGINEERING MANAGER Oxygen Saturation 97% 08/12/2023 1:35 PM SENIOR SOFTWARE ENGINEERING MANAGER Inhaled Oxygen Concentration - - Weight 85.3 kg (188 lb) 02/18/2021 6:33 PM CDT Height 156.2 cm (5' 1.5) 02/18/2021 6:33 PM CDT Body Mass Index 34.95 02/18/2021 6:33 PM CDT Plan of Treatment Health Maintenance Due Date Last Done Comments ADVANCE CARE PLANNING 1997 ANNUAL REVIEW OF HM ORDERS 1997 DEPRESSION ACTION PLAN 1997 Pneumococcal Vaccine: Pediatrics (0 to 5 Years) and At-Risk Patients (6 to 64 Years) (1 of 2 - PCV) 2003 HEPATITIS C SCREENING 2015 PHQ-9 12/08/2016 06/10/2016, 01/0 07/2013, 05/02/2013 YEARLY PREVENTIVE VISIT 06/10/2017 06/10/20 16, 09/13/2011, 03/19/2010, Additional history exists ASTHMA CONTROL TEST 06/14/2018 12/12/2017, 06/10/2016, 06/29/2015 ASTHMA ACTION PLAN 12/15/2018 12/15/2017, 0 02/09/2013, 09/22/2012, Additional history exists COVID-19 Vaccine ( season) 2023 04/03/2021, 03/13/2021 PAP 12/12/2023 12/11/2020 INFLUENZA VACCINE (Season Ended) 2024 05/16/2021, 09/01/2017, 06/07/2016, Additional history exists DTAP/TDAP/TD IMMUNIZATION (9 - Td or Tdap) 05/16/2031 05/16/2021, 02/23/2018, 03/18/2008, Additional history exists HEPATITIS B IMMUNIZATION Completed 998, 1997, 1997 IPV IMMUNIZATION Completed 04/13/2001, , 1997, Additional history exists MENINGITIS IMMUNIZATION Aged Out 03/20/2009 No l onger eligible based on patient's age to complete this topic HPV IMMUNIZATION Completed 10/30/2009, , 03/20/2009 CHLAMYDIA SCREENING Discontinued 12/11/2020, 06/29/2018, 06/29/2018 HIV SCREENING Completed 12/11/2020, 09/25/2017 RSV MONOCLONAL ANTIBODY Aged Out No l onger eligible based on patient's age to complete this topic Procedures Procedure Name Priority Date/Time Associated Diagnosis Comments HIV 1&2 ANTIBODY (EXTERNAL RESULT) Routine 12/11/2020 12:00 PM CDT NEISSERIA GONORRHOEAE PCR Routine 06/29/2018 8:40 PM SENIOR SOFTWARE ENGINEERING MANAGER Screen for STD (sexually transmitted disease) ASTHMA ACTION PLAN Routine 12/15/2017 2: 11 PM CDT from Last 3 Months or Most Recently Relevant to Health Maintenance Results * HIV-1 Antibody (External Result) (12/11/2020 12:00 PM CDT) HIV 1&2 Antibody (External) Negative Nonreactive EXTERNAL LAB 12/11/2020 12:0 0 PM CDT Patient Reported LAB - HIM EXTERNAL R ESULT Performing Organization Address City/[facility]/ZIP Co de Phone Number EXTERNAL LAB External Lab * NEISSERIA GONORRHOEA PCR (06/29/2018 8:40 PM SENIOR SOFTWARE ENGINEERING MANAGER) Specimen Descrip Vagina 06/29/20 18 8:49 PM SENIOR SOFTWARE ENGINEERING MANAGER [facility] N Gonorrhea PCR Negative NEG^Negat mohinder 07/01/2018 3:15 PM SENIOR SOFTWARE ENGINEERING MANAGER [facility] Comment: Negative for N. gonorrhoeae rRNA by station gateman mediated amplification. A negative result by station gateman mediated amplification does not preclude the presence of N. gonorrhoeae infection because results are dependent on proper and adequate collection, absence of inhibitors, and sufficient rRNA to be detected. Specimen from vagina (specimen) 06/29/2018 8:40 PM SENIOR SOFTWARE ENGINEERING MANAGER 06/29/2018 8:49 PM SENIOR SOFTWARE ENGINEERING MANAGER Clarice Wong MD LAB - MICRO GEN ERAL ORDERABLES [facility] [address] [place] [address], [facility] [address] [place] [address] [place] [address] from Last 3 Months or Most Recently Relevant to Health Maintenance Advance Directives For more information, please contact: [phone] * Full Code (Latest Code Status on [...] 1:47 AM 08/31/2017 3:46 AM Care Teams Optometric Assistant Relationship Specialty Start Date End Date No Ref-Primary, Physician PCP - General 02/18/21
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
--- OUTSIDE RECORDS SUMMARY | 2023-12-17 22:26 | XMS_ITS | Encounter Summary ---
Author Organization [place] Address [address] [facility] [place] [address] Care Team Providers Care Associate Store Director Name Role Phone Rachelle Abreu MD Primary Care Provid er Steve, Meenakshi Alcazar APRN MOLDING PROCESS TECHNICIAN Unavailable Un available SteveMeenakshi ruiz APRN MOLDING PROCESS TECHNICIAN Unavailable Un available Rachelle Abreu MD Unavailable + [phone] Steve, Meenakshi Alcazar APRN MOLDING PROCESS TECHNICIAN Unavailable Un available Rika De La Cruz NP Unavailable [phone] No Ref-Primary, Physician Primary Care Provider Encounter Details Date Type Department Care Team (Late st Contact Info) Description 07/22/[address] [place] [address] Suzi Mendez MD NO LONGER AT [facility]/UNABLE TO LOCATE 07/14/23 ER ENCOUNTER (Primary Dx) Social History Tobacco Use Types Packs/Day Years [...] on file documented as of this encounter Progress Notes * 07/22/2003 11:59 PM [id number] 00:00 Emergency Department Encounter-MATTHEW GA) [Entered: 3 00:00 Machine Ironer ([facility])] : 97 CHIEF COMPLAINT: Fever and painful urination. HISTORY O F PRESENT ILLNESS: This is a 8-year-old black female who had painful urination beginning this past Mo nday which is four days ago. She went in to see her primary care physician at that time. All tests, including urinalysis were normal. Yesterday she developed temperature to 101 to 102 degrees F and sh e continues to have urinary symptoms. She also has a decreased appetite and has had some nausea and, thus, comes into the Emergency Department for evaluation. She does not have a history of urinary tr act infections though there is a family history of this. PAST MEDICAL HISTORY: She has a history of ear infections and PE tubes and asthma. MEDICATIONS: She is on Singulare, Advil, Albuterol, Motrin and Tylenol. ALLERGIES: She has no known allergies. SOCIAL HISTORY: She is single and lives in [facility]. She is a student. Her mother is here in attendance. Immunizations are up to date. REVIE W OF SYSTEMS: She has had the fever, no headache or neurological symptoms. No visual disturbance. N o sore throat or ENT symptoms. The rest of the review of systems is negative. PHYSICAL EXAM: Roger gardner is 99.5 F orally, pulse 165, respirations 24, O2 saturation 99% on room air. GENERAL: She is a well-nourished female. Ears are clear. Hearing is normal. She had no conjunctivitis or lid abnor malities. Throat was clear. Mucus membranes were moist. He had no abnormalities of the lips, teeth , tongue or buccal mucosa. NECK: Supple without adenopathy. LUNGS: Clear. She had no wheezing or respiratory distress. No flank tenderness. HEART: Normal S1 and S2 without murmurs. No rubs, thri lls or gallops. ABDOMEN: Soft, nontender with good bowel sounds. She had no organomegaly. EXTREMITI ES: She had no edema or rashes. Pulses are full and symmetric. NEURO: She is alert and oriented ti mes three. Recent and remote memory were normal. Tone, motor and sensation were all within normal jackson its. LABS AND DIAGNOSTIC TESTING: Laboratory values revealed a urinalysis with a specific gravity 1 .025, greater than 80 of ketones, pH of 5.0, positive nitrites. Greater than 100 wbc's and 2 to 5 rb c's and many bacteria. White count 15,400 with a left shift, hemoglobin 13.6. Sodium 138, potassium 4.5, chloride 104, CO2 is 18, anion gap is 16, glucose is 77, BUN 12, creatinine 0.6. EMERGENCY DEP ARTMENT COURSE: The child was able to take fluids well here today. She was given Rocephin one gram I M. She did not have a reaction with this. Mom felt comfortable taking the child home. I spoke with Dr. Nixon concerning the patient and the need for follow-up in the next several days. Mom was comf ortable taking the child home. ASSESSMENT: Fever/urinary tract infection/pyelonephritis. PLAN: I oneil ve asked that they continue with fluids and even increase fluids. I have given them Keflex 250 mg/5 one teaspoon p.o. q.i.d. times ten days. They are to follow-up with their private doctor within one week. I spoke with Dr. Nixon concerning this and they are to concern with increased symptoms in the meantime. EM: #[id number] _ MATTHEW LOCKWOOD MD MT: Bk t: [id number] [place], [place] Name: LISS ASHBY [facility] ENCY ROOM ENCOUNTER Page 2 of 2 LCN: TAMI DSC: 07/22/2003 [facility] Name: MR#: : Admit Date: AMARJITNOELLESANTOSWILBER Chapman -96 1995 07/22/2003 Doctor: MATTHEW LOCKWOOD MD EMERGENCY ROOM ENCOUNTER Page 1 of 2 Electronically filed by Sakina Brooks 08/02/2003 9:03 AM documented in this encounter Plan of Treatment Not on file documented as of this encounter Visit Diagnoses Diagnosis ER ENCOUNTER- Primary documented in this encounter Additional Health Concerns Infection Onset Date Last Indicated Resolved Time Rule Out COVID-19 Comment:Negative COVID-19 10/12/2019 10/12/2019 10/18/2019 1:2 4 PM CDT Rule Out COVID-19 08/12/2023 08/12/2023 08/12/2023 1:13 PM YARN SIZER documented as of this encounter Care Teams Associate Store Director Relationship Specialty Start Date End Date Rachelle Abreu MD [address] [address] PCP - General Pediatrics 06/12/13 02/17/21 Meenakshi Wilson APRN MOLDING PROCESS TECHNICIAN PCP - Assigned PCP 12/14/17 09/29/18 No Ref-Primary, Physician PCP - General 02/18/21 Meenakshi Wilson APRN MOLDING PROCESS TECHNICIAN Assigned PCP 12/14/17 12/12/18 Rachelle Abreu MD [address] [address] Assigned PCP 12/13/18 06/12/19 Meenakshi Wilson APRN MOLDING PROCESS TECHNICIAN Assigned PCP 06/13/19 12/20/20 Rika De La Cruz NP [address] [place] [address] Assigned Pediatric Specialist Provider 05/19/20 06/10/20 documented as of this encounter
--- OUTSIDE RECORDS SUMMARY | 2023-12-17 22:26 | XMS_ITS | Clinical Summary ---
Author Organization [facility] Address [place], [place] [address] Care Team Providers Care Us Administrative Law Judge Name Role Phone Pcp, No Primary Care Provider Unavailabl e Allergies No known active allergies Medications Medication Sig Dispensed Refills Start Date End Date Status albuterol (PROVENTIL) 0.083 % neb solutionIndications:A sthma exacerbation Inhale 3 mL via a nebulizer every 6 hours if needed. 1 box 10/05/2016 Active albuterol HFA 90 mcg/actuation inhalerIndications:Mo derate asthma with acute exacerbation, unspecified whether persistent Inhale 1-2 Puffs by mouth every 4 hours if needed. 1 Inhaler 12/24/2019 Active Advair Diskus 250-50 mcg/dose diskus inhaler Inhale 1 Puff by mouth two times daily. 02/07/2022 Active montelukast (SINGULAIR) 10 mg tablet Take 10 mg by mouth at bedtime. Active loratadine (Claritin) 10 mg tablet Take 10 mg by mouth once daily. Active predniSONE (DELTASONE) 10 mg tabletIndications:Sev ere persistent asthma with acute exacerbation Take 4 Tablets (40 mg) by mouth once daily for 3 days, THEN 3 Tablets (30 mg) once daily for 3 days, THEN 2 Tablets (20 mg) once daily for 3 days, THEN stop. 27 Tablet 09/06/2022 Active Active Problems No known active problems Encounters Date Type Department Care Team Description 11/02/2023 12:53 PM CDT - 11/02/2023 3:21 PM CDT Emergency [facility] [address] [place] [address] Vanessa Mathur PA Nausea vomiting and diarrhea (Primary Dx); History of Discharge Disposition: Home Self Care from Last 3 Months Immunizations Name Administration Dates Next Due Tdap 02/23/2018 Family History Medical History Relation Name Comments No Known Problems Father No Known Problems Mother Relation Name Status Comments Father Mother Social History Tobacco Use Types Packs/Day Years Used Date Smoking Tobacco: Former Cigarettes Smokeless Tobacco: Never Tobacco Cessation:Counseling Given: Not Answered Alcohol Use Standard Drinks/Week Comments Yes 1 (1 standard drink = 0.6 oz pur e alcohol) Social Connections Answer Date Recorded Frequency of Communication with Friends and Fami ly Not on file 11/04/2022 Sex and Gender Information Value Date Recorded Sex Assigned at Not on file Gender Identity Not on file Sexual Orientation Not on file Obstetrics History Last Filed Vital Signs Vital Sign Reading Time Taken Comments Blood Pressure 105/55 11/02/2023 3:13 PM CDT Pulse 79 11/02/2023 3:13 PM CDT Temperature 36.6 ??C (97.9 ??F) 11/02/2023 12:51 PM C DT Respiratory Rate 16 11/02/2023 3:13 PM CDT Oxygen Saturation 100% 11/02/2023 3:13 PM CDT Inhaled Oxygen Concentration - - Weight 72.6 kg (160 lb) 11/02/2023 12:51 PM CDT Height 154.9 cm (5' 1) 11/02/2023 12:51 PM CDT Body Mass Index 30.23 11/02/2023 12:51 PM CDT Plan of Treatment Health Maintenance Due Date Last Done Comments Depression screening for age 12+ 2009 HIV for age 15-65 2012 HPV series for age 9-26 (1 - 3-dose series) 2012 Hepatitis C screening for age 18-79 2015 Pap test for age 21-65 2018 BMI (ht and wt on same day) for age 18+ 05/06/2020 05/06/2019, 02/23/2018, 03/19/2017, Additional history exists COVID-19 vaccine series (2022- season) 2023 04/03/2021, 03/13/2021 Influenza for age 9-49 03/28/2024 Tetanus booster 02/24/2028 02/23/2018 Tdap Completed 02/23/2018 Pneumococcal series for age 6-64 Aged Out No longer eligible based on patient's age to complete this topic Procedures Procedure Name Priority Date/Time Associated Diagnosis Comments EXTRA TUBE BLUE Today 11/02/2023 3:57 PM CDT POTASSIUM STAT 11/02/2023 1:50 PM CDT ,SERUM STAT 11/02/2023 1:04 PM CDT BASIC METABOLIC PANEL STAT 11/02/2023 1:04 PM CDT CBC W PLT NO DIFF STAT 11/02/2023 1:0 4 PM CDT from Last 3 Months Results * EXTRA TUBE BLUE (11/02/2023 3:57 PM CDT) Blood BLOOD SPECIMEN / Unknown Extra Tube / Unknown 11/02/2023 3:57 PM CDT 11/02/2023 3:57 PM CDT Doctor Unknown LABORATORY [facility] SENDOUT INTERNAL ZIP [id number] [place] [address] * POTASSIUM (11/02/2023 1:50 PM CDT) Pathologist [facility] POTASSIUM 3.6 3.5 - 5.1 mmol/L 11/02/2023 2:11 PM CDT [facility] Blood BLOOD SPECIMEN / Unknown Non-Lab Venipuncture / Unknown 11/02/2023 1:50 PM CDT 11/02/2023 1:55 PM CDT Vanessa REYNA CHEMISTRY [facility] SENDOUT INTERNAL ZIP [address] [place] [address] * (ABNORMAL) ,SERUM (11/02/2023 1:04 PM CDT) Pathologist [facility] ,SERU M Positive(P ositive) Negative 11/02/2023 1:31 PM CDT [facility] Comment:Is Rh typing necessa ry? Blood BLOOD SPECIMEN / Unknown IV Start / Unknown 11/02/2023 1:04 PM CDT 11/02/2023 1:08 PM CDT Vanessa REYNA CHEMISTRY [facility] SENDOUT INTERNAL [facility] [address] [place] [address] * CBC W PLT NO DIFF (11/02/2023 1:04 PM CDT) WHITE BLOOD COUNT 9.2 4.5 - 11.0 thou/cu mm 11/02/2023 1:11 PM CDT [facility] RED BLOOD COUNT 4.99 4.00 - 5.20 mil/cu mm 11/02/2023 1:11 PM CDT [facility] HEMOGLOBIN 14.6 12.0 - 16.0 g/dL 11/02/2023 1:11 PM CDT [facility] HEMATOCRIT 42.3 33.0 - 51.0 % 11/02/2023 1:11 PM CDT [facility] MCV 85 80 - 100 fL 11/02/2023 1:11 PM CDT [facility] MCH 29.3 26.0 - 34.0 pg 11/02/2023 1:11 PM CDT [facility] MCHC 34.5 32.0 - 36.0 g/dL 11/02/2023 1:11 PM CDT [facility] RDW 13.4 11.5 - 15.5 % 11/02/2023 1:11 PM CDT [facility] PLATELET COUNT 355 140 - 440 thou/cu mm 11/02/2023 1:11 PM CDT [facility] MPV 8.5 6.5 - 11.0 fL 11/02/2023 1:11 PM CDT [facility] NRBC 0.0 % 11/02/2023 1:11 PM CDT [facility] ABS NRBC 0.0 thou /cu mm 11/02/2023 1:11 PM CDT [facility] Blood BLOOD SPECIMEN / Unknown IV Start / Unknown 11/02/2023 1:04 PM CDT 11/02/2023 1:08 PM CDT Vanessa REYNA HEMATOLOGY [facility] [place] [address] [address] [address] [place] [address] * (ABNORMAL) BASIC METABOLIC PANEL (11/02/2023 1:04 PM CDT) SODIUM 136 136 - 145 mmol/L 11/02/2023 1:43 PM CDT [facility] POTASSIUM 11/02/2023 1:43 PM CDT [facility] Comment:Canceled- Specimen H emolyzed, Disposition Per Policy CHLORIDE 99 98 - 107 mmol/L 11/02/2023 1:43 PM T [facility] CO2,TOTAL 24 22 - 29 mmol/L 11/02/2023 1:43 PM T [facility] ANION GAP 13 5 - 18 11/02/2023 1:43 PM T [facility] GLUCOSE 101(H) 70 - 99 mg/dL 11/02/2023 1:43 PM T [facility] CALCIUM 9.7 8.6 - 10.0 mg/dL 11/02/2023 1:43 PM T [facility] BUN 11 6 - 20 mg/dL 11/02/2023 1:43 PM T [facility] CREATININE 0.74 0.50 - 0.90 mg/dL 11/02/2023 1:43 PM T [facility] BUN/CREAT RATIO 15 10 - 20 1:43 PM T [facility] eGFR >90 >90 mL/min/1.7 3m2 11/02/2023 1:43 PM T [facility] Comment:As of 2021, eG FR is calculated by the CKD-EPI creatinine equation without race adjustment. ??eGFR can be influenced by muscle mass, exercise, and diet. ??The reported eGFR is an estimation only and is only applicable if the renal function is stable. Blood BLOOD SPECIMEN / Unknown IV Start / Unknown 11/02/2023 1:04 PM CDT 11/02/2023 1:08 PM CDT Vanessa REYNA CHEMISTRY [facility] [place] [address] [id number] [address] [place] [address] from Last 3 Months Advance Directives * Full Code (Latest Code Status on File) Date Activated Date Inactivated Comments 09/05/2022 12:29 PM 09/06/2022 4:12 PM Question Answer Comments Code Status Discussion: Reviewed Preferences * Full Code Date Activated Date Inactivated Comments 09/04/2022 10:51 PM 09/05/2022 12:29 PM Question Answer Comments Code Status Discussion: Unable to Assess Preferences, Provider to review later Care Teams Us Administrative Law Judge Relationship Specialty Start Date End Date Pcp, No . PCP - General 11/02/23
[2023-12-17 22:54] LABS: Albumin* 4.6 g/dL (3.3-5.0); Chloride* 108 mmol/L (96-114); Sodium* 139 mmol/L (135-149)
[2023-12-17 22:56] LABS: Anion Gap 7 mEq/L (7-15); Bilirubin Total* 0.7 mg/dL (0.1-1.5); Carbon Dioxide* 24 mmol/L (20-32); Cholesterol* 147 mg/dL (90-199); Creatinine* 0.7 mg/dL (0.5-1.5); Estimated Glomerular Filt Rate 122 ml/min
[2023-12-17 22:57] LABS: Alanine Aminotransferase* 17 U/L (4-35); Alkaline Phosphatase* 51 U/L (40-150); Aspartate Amino Transferase* 25 U/L (12-35); Blood Urea Nitrogen* 12 mg/dL (5-24); Calcium* 9.5 mg/dL (8.4-10.6); Glucose* 79 mg/dL (60-115); Total Protein* 7.8 g/dL (6.0-8.3); Triglycerides* 63 mg/dL (40-149)
[2023-12-17 22:58] LABS: Basophils Absolute Auto 0.03 K/uL (0.00-0.30); Basophils Percent Auto 0.4 % (0.0-3.0); Eosinophils Absolute Auto 0.26 K/uL (0.00-0.50); Eosinophils Percent Auto 3.1 % (0.0-7.0); HDL Cholesterol* 49 mg/dL (>=50); Hematocrit 39.9 % (33.0-51.0); Hemoglobin A1C* 5.2 % (0-5.6); Hemoglobin* 13.3 gm/dL (12.0-16.0); LDL Cholesterol Calculated 85 mg/dL (<100); Lymphocytes Absolute Auto 2.76 K/uL (0.90-2.90); Lymphocytes Percent Auto 32.9 % (20-44); Magnesium* 1.8 mg/dL (1.5-2.6); Mean Corpuscular HGB Conc 33 gm/dL (32-36); Mean Corpuscular Hemoglobin 29 pg (26-34); Mean Corpuscular Volume 86 fL (80-100); Monocytes Percent Auto 5.7 % (0.0-11.0); Neutrophils Absolute Auto 4.87 K/uL (1.7-7.0); Neutrophils Percent Auto 57.9 % (42.0-72.0); Platelet Count* 311 K/uL (140-440); RDW Coefficient of Variation % 13.2 % (11.5-15.5); Red Blood Count 4.62 m/uL (4.00-5.20)
[2023-12-17 23:01] LABS: Slide Review Reflex No
[2023-12-17 23:12] LABS: Vitamin D 25 Hydroxy* 27 ng/mL (30-80)
[2023-12-17 23:13] LABS: Free T4 Free Thyroxine* 0.87 ng/dL (0.70-1.85)
[2023-12-17 23:27] LABS: Thyroid Stimulating Hormone* 0.746 uIU/mL (0.270-4.20)
== END 2023-12-17 22:23 | disposition home or self-care (01) ==
LOC: NPINS 22:22
PROVIDERS: PCP Emergency Medicine; Visit Provider Nurse Practitioner Psychiatric/Mental Health
DX: F43.10 Post-traumatic stress disorder, unspecified (principal); F41.9 Anxiety disorder, unspecified; F19.21 Other psychoactive substance dependence, in remission; F15.21 Other stimulant dependence, in remission; F17.200 Nicotine dependence, unspecified, uncomplicated; F12.90 Cannabis use, unspecified, uncomplicated; F31.81 Bipolar II disorder; F60.9 Personality disorder, unspecified
CPT/HCPCS: 80053; 80061; 82306; 83036; 83735; 84439; 84443; 85025

== ENCOUNTER 2024-02-09 17:37 | Emergency (ER) | payer OTHER, SELFPAY ==
[2024-02-09 18:02] VITALS: BP 108/70; PULSE 89; RESP 18; TEMP 36.8; O2SAT 93; BMI 27.4
--- NOTE | 2024-02-09 18:33 | ED.GENADULT ---
HPI - General Adult General Time Seen by Provider: 18:33 Date Seen: 02/09/24 Chief complaint: Cough Stated complaint: body aches, ear infection Time Seen by Provider: 02/09/24 18:33 Source: patient, RN notes reviewed and old records reviewed Mode of arrival: ambulatory Limitations: no limitations History of Present Illness HPI narrative: 28-year-old female who comes in today with cough. Apparently was seen at urgent care earlier and diagnosed with a ear infection. Patient presents today with concern for cough and shortness of breath. She does have a history of asthma, ran out of albuterol today. Denies chest pain, denies fever, does have nasal congestion and a sore throat. Has had 1 dose of antibiotics for infection. Related Data Home Medications ?Medication ?Instructions ?Recorded ?Confirmed albuterol sulfate 2.5 mg/3 mL 2.5 mg inhalation Q4H PRN 09/04/22 02/09/24 (0.083 %) solution for nebulization albuterol sulfate 90 mcg/actuation 2 inh inhalation Q4H PRN 09/04/22 02/09/24 aerosol inhaler (Ventolin HFA) fluticasone 250 mcg-salmeterol 50 1 inh inhalation Q12H 09/04/22 09/04/22 mcg/dose blistr powdr for inhalation (Advair Diskus) montelukast 10 mg tablet 10 mg PO DAILY 09/04/22 09/04/22 quetiapine 150 mg tablet,extended 150 mg PO QPM 02/09/24 02/09/24 release 24 hr quetiapine 200 mg tablet,extended 200 mg PO QPM 02/09/24 02/09/24 release 24 hr sertraline 50 mg tablet 50 mg PO QPM 02/09/24 02/09/24 Previous Rx's ?Medication ?Instructions ?Recorded prednisone 20 mg tablet 20 mg PO BID 3 days #6 tabs 09/04/22 albuterol sulfate 90 mcg/actuation 2 puff inhalation Q4H PRN 02/09/24 aerosol inhaler (Proventil HFA) shortness of breath or wheezing #8.5 grams prednisone 50 mg tablet 50 mg PO DAILY #4 tabs 02/09/24 Allergies Allergy/AdvReac Type Severity Reaction Status Date / Time No Known Drug Allergies Allergy Unverified 08/12/23 09:06 PFSH PFSH Social History (Updated 02/09/24 @ 19:57 by Ortega Foster MD) Smoking Status: Current every day smoker Do you use any of these nicotine containing products: None Second hand tobacco smoke exposure: No How often do you have a drink containing alcohol: 2-4 times a month How many standard drinks containing alcohol do you have on a typical day: 1 or 2 How often do you have six or more drinks on one occasion: Never AUDIT-C Alcohol total score: 2 Non-prescribed substance use: denies use Exam Narrative: Exam Narrative: General: Well-developed and well-nourished, no acute distress Head: Atraumatic and normocephalic Eyes: Pupils are equal reactive, extraocular motions intact, conjunctiva clear ENT: Nasal congestion, tympanic membranes with slight bulging bilaterally Neck: No midline cervical tenderness, full spontaneous range of motion the neck, trachea midline, no adenopathy Heart: Regular rate and rhythm no murmurs or thrills Lungs: Inspiratory and expiratory wheezes bilaterally Abdomen: Soft, nontender, nondistended with active bowel sounds Musculoskeletal: No tenderness, deformity, or edema Neurologic: Awake, alert, and oriented x3, no gross focal neurologic deficits, cranial nerves intact as tested Psych: Mood and affect are appropriate Skin: No rashes Const: Vital Signs, click to edit/add: Vital Signs - 24 hr 02/09/24 18:02 02/09/24 19:30 Temperature 98.2 F Pulse Rate [Right Pulse Oximeter] 89 93 Respiratory Rate 18 18 Blood Pressure [Ri ght Upper Arm] 108/70 114/65 Pulse Oximetry 93 95 Oxygen Delivery Me thod Room Air Room Air Course Course ED Course: Patient seen examined, reviewed prior emergency department visit from August 2022 which was for asthma with acute exacerbation treated and discharged with prednisone as well as albuterol. Patient presents today with cough, nasal congestion, and recent diagnosis of ear infection. On exam here, oxygen saturation 93%, no respiratory distress. Marked inspiratory and expiratory wheezes bilaterally. Tympanic membranes mildly bulging bilaterally but no redness. Patient will be started on prednisone and DuoNeb in the emergency department with plan for albuterol and prednisone for home. Reevaluation(s) Time of Reevaluation #1: 19:55 Reevaluation #1: Patient recheck, she is still quite wheezy but feels much better. She is requesting discharge. Will switch her prescriptions for albuterol and prednisone to [facility] at her request. Social determine its of health including poor access to affordable medical care, noncompliance Medical issues contributing to condition today including asthma and smoking Vital Signs Vital signs: Initial Vital Signs Temperature 98.2 F 02/09/24 18:02 Temperature Source Temporal Artery Scan 02/09/24 18:02 Pulse Rate 89 02/09/24 18:02 Respiratory Rate 18 02/09/24 18:02 Blood Pressure 108/70 02/09/24 18:02 Blood Pressure Mean 82 02/09/24 18:02 Blood Pressure Position Sitting 02/09/24 18:02 Pulse Oximetry 93 02/09/24 18:02 Oxygen Delivery Method Room Air 02/09/24 18:02 Vital Signs Temperature 98.2 F 02/09/24 18:02 Pulse Rate 89 02/09/24 18:02 Respiratory Rate 18 02/09/24 18:02 Blood Pressure 108/70 02/09/24 18:02 Pulse Oximetry 93 02/09/24 18:02 Oxygen Delivery Method Room Air 02/09/24 18:02 Temperature 98.2 F 02/09/24 18:02 Pulse Rate 93 02/09/24 19:30 Respiratory Rate 18 02/09/24 19:30 Blood Pressure 114/65 02/09/24 19:30 Pulse Oximetry 95 02/09/24 19:30 Oxygen Delivery Method Room Air 02/09/24 19:30 Medications Administered Medications: Generic Name Dose Route Start Last Admin Trade Name Freq PRN Reason Stop Dose Admin Albuterol/Ipratropium 1 neb 02/09/24 18:45 02/09/24 18:56 Iprat-Albut 0.5-2.5 Mg/3 Ml Neb 02/09/24 18:46 1 neb ONCE ONE Administration Prednisone 60 mg 02/09/24 18:45 02/09/24 18:56 Prednisone 20 Mg Tablet PO 02/09/24 18:46 60 mg ONCE ONE Administration Discharge Plan Discharge Clinical Impression: Acute upper respiratory infection, Acute asthma exacerbation Patient Disposition: Home, Self-Care Condition: Stable Instructions: Asthma (ED), Viral Syndrome (ED) Additional Instructions: Take prednisone as prescribed starting tomorrow Albuterol 2 puffs every 2 hours while awake for 24 hours, then 2 puffs every 3 hours while awake for 24 hours, the 2 puffs every 4 hours as needed Take antibiotics as prescribed from Urgent Care Discharge Diet: Regular Prescriptions: New albuterol sulfate [Proventil HFA] 90 mcg/actuation HFA aerosol inhaler 2 puff inhalation Q4H PRN (Reason: shortness of breath or wheezing) Qty: 8.5 0RF prednisone 50 mg tablet 50 mg PO DAILY Qty: 4 0RF No Action sertraline 50 mg tablet 50 mg PO QPM quetiapine 200 mg tablet extended release 24 hr 200 mg PO QPM quetiapine 150 mg tablet extended release 24 hr 150 mg PO QPM montelukast 10 mg tablet 10 mg PO DAILY Patient Comments: TAKE ONE TABLET BY MOUTH AT BEDTIME fluticasone propion-salmeterol [Advair Diskus] 250-50 mcg/dose blister with device 1 inh INHALATION Q12H Patient Comments: INHALE ONE PUFF BY MOUTH TWICE DAILY albuterol sulfate [Ventolin HFA] 90 mcg/actuation HFA aerosol inhaler 2 inh INHALATION Q4H PRN Patient Comments: INHALE 2 PUFFS BY MOUTH EVERY 4 HOURS NEEDED albuterol sulfate 2.5 mg /3 mL (0.083 %) solution for nebulization 2.5 mg inhalation Q4H PRN Patient Comments: inhale the contents of 1 vial via nebulizer every 4 hours as needed prednisone 20 mg tablet 20 mg PO BID 3 Days Qty: 6 0RF Follow Up/Referrals: Sujata Waller MD [Primary Care Provider] - Stand Alone Forms: [employer] Info Instructions
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
--- OUTSIDE RECORDS SUMMARY | 2024-02-09 18:53 | XMS_ITS | Encounter Summary ---
Author Organization [facility] Address [address] [facility] [place] [address] Care Team Providers Care Winder Operator Name Role Phone Rachelle Abreu MD Primary Care Provid er Steve, Meenakshi Alcazar APRN ADVERTISING REPRESENTATIVE Unavailable Un available SteveMeenakshi ruiz APRN ADVERTISING REPRESENTATIVE Unavailable Un available Rachelle Abreu MD Unavailable + [phone] Steve, Meenakshi Alcazar APRN ADVERTISING REPRESENTATIVE Unavailable Un available Rika De La Cruz NP Unavailable [phone] No Ref-Primary, Physician Primary Care Provider Encounter Details Date Type Department Care Team (Late st Contact Info) Description 07/22/[address] [place] [address] Suzi Mendez MD NO LONGER AT [facility]/UNABLE TO LOCATE 07/14/23 ER ENCOUNTER (Primary [...] encounter Progress Notes * 07/22/2003 11:59 PM [id number] 00:00 Emergency Department Encounter-MATTHEW GA) [Entered: 3 00:00 Lace Inspector ([facility])] : 89 CHIEF COMPLAINT: Fever and painful [...] HISTORY: She is single and lives in [facility]. She is a student. Her mother is [...] _ MATTHEW LOCKWOOD MD MT: Bk t: [id number] [place], [place] Name: PRISCILLA ASHBY [facility] ENCY ROOM ENCOUNTER Page 2 of 2 LCN: TAMI DSC: 07/22/2003 [facility] Name: MR#: : Admit Date: AMARJITNOELLESANTOSAMANDA Chapman [id number] 1997 07/22/2003 Doctor: MATTHEW LOCKWOOD MD EMERGENCY [...] Out COVID-19 08/12/2023 08/12/2023 08/12/2023 1:13 PM MANAGER ORGANIZATIONAL documented as of this encounter Care Teams Winder Operator Relationship Specialty Start Date End Date Rachelle Abreu MD [address] [address] PCP - General Pediatrics 06/12/13 02/17/21 Meenakshi Wilson APRN ADVERTISING REPRESENTATIVE PCP - Assigned PCP 12/14/17 09/29/18 No Ref-Primary, Physician PCP - General 02/18/21 Meenakshi Wilson APRN ADVERTISING REPRESENTATIVE Assigned PCP 12/14/17 12/12/18 Rachelle Abreu MD [address] [address] Assigned PCP 12/13/18 06/12/19 Meenakshi Wilson APRN ADVERTISING REPRESENTATIVE Assigned PCP 06/13/19 12/20/20 Rika De La Cruz NP [address] [place] [address] Assigned Pediatric Specialist Provider 05/19/20 06/10/20 documented as of this encounter
--- OUTSIDE RECORDS SUMMARY | 2024-02-09 18:53 | XMS_ITS | Referral Summary ---
Author Organization [place] Address [facility]ly [facility] [place] [address] Care Team Providers Care Chief Information Security Officer Name Role Phone No Ref-Primary, Physician Primary [...] Answer Date Recorded PHQ-2 Score 0 08/04/2018 [place] Depression Scale Answer Date Recorded [place] Depression Score 3 07/02/2021 Last EPDS Self [...] Comments Blood Pressure 137/119 08/12/2023 1:00 PM VEGETABLE PICKER Pulse 76 08/12/2023 1:00 PM VEGETABLE PICKER Temperature 36.1 ??C (97 ??F) 08/12/2023 12:04 PM VEGETABLE PICKER Respiratory Rate 17 08/12/2023 1:35 PM VEGETABLE PICKER Oxygen Saturation 97% 08/12/2023 1:35 PM VEGETABLE PICKER Inhaled Oxygen Concentration - - Weight 85.3 kg (188 lb) 02/18/2021 6:33 PM CDT Height 156.2 cm (5' 1.5) 02/18/2021 6:33 PM CDT Body Mass Index 34.95 02/18/2021 6:33 PM CDT Plan of Treatment Not on file Procedures Procedure Name Priority Date/Time Associated Diagnosis Comments HIV 1&2 ANTIBODY (EXTERNAL RESULT) Routine 12/11/2020 12:00 PM CDT NEISSERIA GONORRHOEAE PCR Routine 06/29/2018 8:40 PM VEGETABLE PICKER Screen for STD (sexually transmitted disease) ASTHMA [...] * NEISSERIA GONORRHOEA PCR (06/29/2018 8:40 PM VEGETABLE PICKER) Specimen Descrip Vagina 06/29/20 8:49 PM VEGETABLE PICKER [facility] N Gonorrhea PCR Negative NEG^Negat mohinder 07/01/2018 3:15 PM VEGETABLE PICKER [facility] Comment: Negative for N. gonorrhoeae rRNA by power plant mechanic mediated amplification. A negative result by power plant mechanic mediated amplification does not preclude the presence of N. gonorrhoeae infection because results are dependent on proper and adequate collection, absence of inhibitors, and sufficient rRNA to be detected. Specimen from vagina (specimen) 06/29/2018 8:40 PM VEGETABLE PICKER 06/29/2018 8:49 PM VEGETABLE PICKER Clarice Wong MD LAB - MICRO GEN ERAL ORDERABLES Performing Organization Address [facility] Co de Phone Number [facility] [address] [place], [place] [id number] [place] [address] [place] [address] [place] [address] from Last 3 Months or Most Recently Relevant to Health Maintenance Advance Directives For more information, please contact: [phone] * Full Code (Latest Code Status on [...] 1:47 AM 08/31/2017 3:46 AM Care Teams Chief Information Security Officer Relationship Specialty Start Date End Date No Ref-Primary, Physician PCP - General 02/18/21
--- OUTSIDE RECORDS SUMMARY | 2024-02-09 18:53 | XMS_ITS | Clinical Summary ---
Author Organization [place] Address [facility] [place] [address] Care Team Providers Care Rehabilitation Construction Specialist Name Role Phone No Ref-Primary, Physician Primary [...] Answer Date Recorded PHQ-2 Score 0 08/04/2018 [place] Depression Scale Answer Date Recorded [place] Depression Score 3 07/02/2021 Last EPDS Self [...] Comments Blood Pressure 137/119 08/12/2023 1:00 PM HATCH TENDER Pulse 76 08/12/2023 1:00 PM HATCH TENDER Temperature 36.1 ??C (97 ??F) 08/12/2023 12:04 PM HATCH TENDER Respiratory Rate 17 08/12/2023 1:35 PM HATCH TENDER Oxygen Saturation 97% 08/12/2023 1:35 PM HATCH TENDER Inhaled Oxygen Concentration - - Weight 85.3 [...] 04/03/2021, 03/13/2021 PAP 12/12/2023 12/11/2020 INFLUENZA VACCINE (#1) 2024 , 09/01/2017, 06/07/2016, Additional history exists DTAP/TDAP/TD IMMUNIZATION [...] NEISSERIA GONORRHOEAE PCR Routine 06/29/2018 8:40 PM HATCH TENDER Screen for STD (sexually transmitted disease) ASTHMA ACTION PLAN Routine 12/15/2017 2: 11 PM CDT from Last 3 Months or Most Recently Relevant to Health Maintenance Results * HIV-1 Antibody (External Result) (12/11/2020 12:00 PM CDT) HIV 1&2 Antibody (External) Negative Nonreactive EXTERNAL LAB 12/11/2020 12:0 0 PM CDT Patient Reported LAB - HIM EXTERNAL R ESULT Performing Organization Address City/[facility]/ZIP Co de Phone Number EXTERNAL LAB External Lab * NEISSERIA GONORRHOEA PCR (06/29/2018 8:40 PM HATCH TENDER) Specimen Descrip Vagina 06/29/20 18 8:49 PM HATCH TENDER [facility] N Gonorrhea PCR Negative NEG^Negat mohinder 07/01/2018 3:15 PM HATCH TENDER [facility] Comment: Negative for N. gonorrhoeae rRNA by dip tube assembler machine mediated amplification. A negative result by dip tube assembler machine mediated amplification does not preclude the presence of N. gonorrhoeae infection because results are dependent on proper and adequate collection, absence of inhibitors, and sufficient rRNA to be detected. Specimen from vagina (specimen) 06/29/2018 8:40 PM HATCH TENDER 06/29/2018 8:49 PM HATCH TENDER Clarice Wong MD LAB - MICRO GEN ERAL ORDERABLES [facility] [address] [place] [address], [facility] [address] [place] [address] [place] [address] from Last 3 Months or Most Recently Relevant to Health Maintenance Advance Directives For more information, please contact: [phone] * Full Code (Latest Code Status on [...] 1:47 AM 08/31/2017 3:46 AM Care Teams Rehabilitation Construction Specialist Relationship Specialty Start Date End Date No Ref-Primary, Physician PCP - General 02/18/21
--- OUTSIDE RECORDS SUMMARY | 2024-02-09 18:53 | XMS_ITS | Clinical Summary ---
Author Organization [facility] [place], [place] [address] Care Team Providers Care Phone Banker Name Role Phone Pcp, No Primary Care [...] Active Active Problems No known active problems Immunizations Name Administration Dates Next Due Tdap [...] on patient's age to complete this topic Advance Directives * Full Code (Latest Code Status on File) Date Activated Date Inactivated Comments 09/05/2022 12:29 PM 09/06/2022 4:12 PM Question Answer Comments Code Status Discussion: Reviewed Preferences * Full Code Date Activated Date Inactivated Comments 09/04/2022 10:51 PM 09/05/2022 12:29 PM Question Answer Comments Code Status Discussion: Unable to Assess Preferences, Provider to review later Care Teams Phone Banker Relationship Specialty Start Date End Date Pcp, No . PCP - General 11/02/23
[2024-02-09] MEDS: IPRAT-ALBUT 0.5-2.5 MG/3 ML NEB 1 NEB IH (18:56)
[2024-02-09] MEDS: predniSONE 20 MG TABLET 60 MG PO (18:56)
[2024-02-09 19:30] VITALS: BP 114/65; PULSE 93; RESP 18; O2SAT 95
[2024-02-09 20:05] VITALS: BP 114/65; PULSE 93; RESP 18; TEMP 36.8
== END 2024-02-09 20:07 | disposition home or self-care (01) ==
LOC: ED 18:51
PROVIDERS: Emergency Provider Family Medicine; PCP Emergency Medicine
DX: J45.901 Unspecified asthma with (acute) exacerbation (principal); J06.9 Acute upper respiratory infection, unspecified
CPT/HCPCS: 94640; 99284; J7512